=== PATIENT | female | born 2000 | race Caucasian/White ===

== ENCOUNTER 2024-08-05 17:05 | Emergency (ER) | payer SELFPAY ==
[~2024-08-05] VITALS: Ht 157.5 cm; Wt 60.0 kg
[2024-08-05 17:31] VITALS: O2SAT 99
[2024-08-05 18:52] VITALS: BP 111/71; PULSE 66; RESP 18; TEMP 98.5; O2SAT 100
[2024-08-05] MEDS ORDERED: ACETAMINOPHEN 325MG TABLET PO ONE (20:30)
[2024-08-05] MEDS ORDERED: NAPR-1176 MT (20:50)
[2024-08-05] MEDS: ACETAMINOPHEN 325MG TABLET PO NR (22:26)
== END 2024-08-05 22:28 | disposition home or self-care (01) ==
LOC: ER 17:05
DX: S62.604A Fracture of unspecified phalanx of right ring finger, initial encounter for closed fracture (principal); W23.0XXA Caught, crushed, jammed, or pinched between moving objects, initial encounter; Y93.89 Activity, other specified; Y92.89 Other specified places as the place of occurrence of the external cause; Y99.8 Other external cause status
CPT/HCPCS: 73130; 29130; 99283; Z7610 ×2

== ENCOUNTER 2025-09-20 15:59 | Emergency (ER) | payer MEDICAID ==
[~2025-09-20] VITALS: Ht 160 cm; Wt 68.0 kg
[~2025-09-20 15:59] MED LIST: NAPR-1176 MT
[2025-09-20 16:20] VITALS: O2SAT 100
[2025-09-20] MEDS: ACETAMINOPHEN 500MG TABLET PO ONE (16:34)
[2025-09-20 16:53] LABS: BASOPHILS % 0.1 % (0.0-2.0); EOSINOPHILS % 0.4 % (0.0-5.0); HEMATOCRIT. 34.1 % (36.0-48.0); HEMOGLOBIN. 11.5 g/dL (12.0-16.0); LYMPHOCYTES % 8.3 % (20.0-50.0); MEAN PLATELET VOLUME 9.4 fl (7.4-10.4); MONOCYTES % 9.2 % (2.0-8.0); NEUTROPHILS % 82.0 % (40.0-76.0); PLATELET 202 x1000/uL (130-400); RED BLOOD CELL COUNT 3.83 mill/uL (4.2-5.4); RED CELL DISTRIBUTION WIDTH 13.3 % (11.6-14.6)
[2025-09-20 17:19] LABS: UREA NITROGEN BLOOD < 5 mg/dL (9-23)
[2025-09-20 17:20] LABS: CREATININE 0.5 mg/dL (0.6-1.0)
[2025-09-20 17:21] LABS: ETHANOL BLOOD < 10 mg/dL (<10); PROTEIN TOTAL 7.3 g/dL (6.0-8.3)
[2025-09-20 17:22] LABS: ASPARTATE AMINOTRANSFERASE 20 IU/L (<34); BILIRUBIN DIRECT 0.1 mg/dL (<=3.0); BILIRUBIN TOTAL 0.5 mg/dL (0.1-1.0); HCG SCREEN POSITIVE
[2025-09-20 17:34] LABS: INR 0.9
[2025-09-20 17:46] LABS: *AMPHETAMINES SCREEN URINE NEGATIVE (NEGATIVE); *BARBITURATES SCREEN URINE NEGATIVE (NEGATIVE); *BENZODIAZEPINES SCREEN URINE NEGATIVE (NEGATIVE); *COCAINE SCREEN URINE NEGATIVE (NEGATIVE); METHADONE URINE SCREEN NEGATIVE (NEGATIVE); OPIATES URINE SCREEN NEGATIVE (NEGATIVE); PHENCYCLIDINE URINE SCREEN NEGATIVE (NEGATIVE)
[2025-09-20 17:47] LABS: CANNABINOID URINE SCREEN NEGATIVE (NEGATIVE); ECSTASY MDMA SCREEN URINE NEGATIVE (NEGATIVE)
[2025-09-20 17:50] LABS: CLARITY URINE CLEAR (CLEAR); COLOR URINE YELLOW (YELLOW); GLUCOSE URINE NEGATIVE (NEGATIVE); KETONES URINE 1+ (NEGATIVE); LEUKOCYTE ESTERASE URINE 2+ (NEGATIVE); NITRITE URINE NEGATIVE (NEGATIVE); OCCULT BLOOD URINE 1+ (NEGATIVE); PH URINE 6.5 (4.5-8.0); PROTEIN URINE NEGATIVE (NEGATIVE); SPECIFIC GRAVITY URINE 1.011 (1.005-1.030); UROBILINOGEN URINE 0.2 E.U./dL (0.2-1.0)
[2025-09-20 18:32] VITALS: BP 95/55; PULSE 98; RESP 26; TEMP 37.2; O2SAT 99
[2025-09-20 19:57] LABS: BACTERIA URINE TRACE; SQUAMOUS EPITHELIAL CELL URINE FEW /lpf (RARE/1+)
[2025-09-22 04:12] LABS: HSV TYPE 2 SPECIFIC AB IGG Reactive (Non Reactive)
== END 2025-09-20 18:59 | disposition short-term general hospital (02) ==
LOC: ER 15:59
DX: O26.892 Other specified pregnancy related conditions, second trimester (principal); N89.8 Other specified noninflammatory disorders of vagina; Z79.1 Long term (current) use of non-steroidal anti-inflammatories (NSAID); Z3A.25 25 weeks gestation of pregnancy; Z79.899 Other long term (current) drug therapy; Z20.822 Contact with and (suspected) exposure to COVID-19
CPT/HCPCS: 36415; 76805; 80048; 80076; 80305; 80320; 81003; 83735; 84702; 84703; 85025; 86592; 86695; 86696; 86850; 86900; 87340; 99285; G0480